=== PATIENT | female | born 1975 | race Caucasian/White ===

== ENCOUNTER 2018-09-04 13:46 | Emergency (ER) | payer OTHER ==
[2018-09-04 13:57] VITALS: BP 123/81; PULSE 88; TEMP 98; BMI 37.8
[2018-09-04 14:23] LABS: BASO % 0.5 % (0-2.0); EOS % 1.3 % (0-4.5); HEMATOCRIT 41.9 % (35.4-49); HEMOGLOBIN 13.4 GM/dL (11.7-16.9); LYMPH % 30.8 % (8-40); MEAN PLT VOLUME 8.8 fl (7.5-11.1); NEUT % 61.4 % (42.8-82.8); PLATELET COUNT 243 K/MM3 (134-434); RBC 5.37 M/mm3 (4.00-5.60); RDW 13.1 % (11.9-15.9); WHITE BLOOD COUNT 7.6 K/mm3 (4.0-10.0)
--- NOTE | 2018-09-04 14:23 | PDOC ---
History of Present Illness - General Chief Complaint: Blood/Body Fluid Exposure SJR Stated Complaint: EVALUATION Time Seen by Provider: 09/04/18 13:57 History Source: Patient Exam Limitations: No Limitations - History of Present Illness Initial Comments: 09/04/18 14:17 43-year-old female presents to ED status post puncture to the upper left arm by a scalpel which was used on a patient previous to the incident. 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 Patient states tetanus is up-to-date and has no history of diabetes or immunosuppressive disorders. Timing/Duration: 1 hour Severity: mild Associated Symptoms: reports: denies symptoms Past History - Travel Traveled outside of the country in the last 30 days: No - Past Medical History Allergies/Adverse Reactions: Allergies Allergy/AdvReac Type Severity Reaction Status Date / Time Penicillins Allergy Severe Swelling Verified 09/04/18 13:57 Sulfa (Sulfonamide AdvReac Severe Rash Verified 09/04/18 13:57 Antibiotics) Home Medications: Ambulatory Orders Clindamycin [Cleocin -] 300 mg PO TID #21 capsule 09/04/18 - Suicide/Smoking/Psychosocial Hx Smoking History: Never smoked Patient Lives Alone: No Lives with/in: spouse/SO Review of Systems - Review of Systems Able to Perform ROS?: Yes Constitutional: No: Symptoms Reported Musculoskeletal: No: Symptoms Reported Integumentary: Yes: See HPI Hematologic/Lymphatic: No: Symptoms Reported *Physical Exam - Vital Signs Last Vital Signs Temp Pulse Resp BP Pulse Ox 98.0 F 88 20 123/81 97 09/04/18 13:53 09/04/18 13:53 09/04/18 13:53 09/04/18 13:53 09/04/18 13:53 - Physical Exam General Appearance: Yes: Nourished, Appropriately Dressed. No: Apparent Distress Extremity: positive: Normal Inspection, Normal Range of Motion. negative: Tender Integumentary: positive: Other (noted 0.25 superficial puncture to the distal aspect of left tricep. Surrounding skin intact) Neurologic: positive: Normal Mood/Affect, Motor Strength 5/5 (ambulatory) ED Treatment Course - LABORATORY CBC & Chemistry Diagram: 09/04/18 13:58 09/04/18 13:58 Medical Decision Making - Medical Decision Making 09/04/18 14:24 Chief complaint: Left arm injury secondary to scalpel which was used for an incision and drainage of a Bartholin's cyst Exam: Area cleansed with soap and water. Small superficial puncture karis noted to left upper posterior arm. Plan: Postexposure order set, will prescribe clindamycin for cellulitis prophylactically. labs pending from patient exposed to J #[id number] 09/04/18 16:09 Laboratory Tests 09/04/18 09/04/18 09/04/18 13:58 13:58 13:58 WBC 7.6 Hgb 13.4 Hct 41.9 MCV 78.0 L MCH 25.0 L Sodium 137 Potassium 4.1 Chloride 107 Carbon Dioxide 26 Anion Gap 5 L BUN 15 Creatinine 0.7 Random Glucose 92 Uric Acid 3.3 Calcium 8.5 Phosphorus 2.8 Total Bilirubin 0.7 GGT 23 AST 11 L ALT 20 Alkaline Phosphatase 65 LD Total 175 Total Protein 7.1 Albumin 3.8 Triglycerides 77 Cholesterol 217 H HIV 1&2 Antibody Screen Negative HIV P24 Antigen Negative Hepatitis panel is a send out. Patient made aware. Prescription for clindamycin sent. 09/04/18 16:11 Was told by resident taking care of the patient HIV results pending. *DC/Admit/Observation/Transfer Diagnosis at time of Disposition: Employee exposure to blood - Discharge Dispostion Disposition: HOME Condition at time of disposition: Good - Prescriptions Prescriptions: Clindamycin [Cleocin -] 300 mg PO TID #21 capsule - Referrals - Patient Instructions Printed Discharge Instructions: How to Handle Body Fluid Exposure -- Healthcare Worker Additional Instructions: Please start clindamycin as recommended. Please observe for infection around the site. Also consider repeating labs within 6 months with your primary care physician . - Post Discharge Activity Forms/Work/School Notes: Back to Work
[2018-09-04 14:48] LABS: ALBUMIN 3.8 g/dl (3.4-5.0); ALK PHOS 65 U/L (45-117); ANION GAP 5 MMOL/L (8-16); BILIRUBIN,TOTAL 0.7 mg/dL (0.2-1); BLOOD UREA NITROGEN 15 mg/dL (7-18); CALCIUM 8.5 mg/dL (8.5-10.1); CHLORIDE 107 mmol/L (98-107); CHOLESTEROL 217 mg/dL (50-200); CO2 26 mmol/L (21-32); CREATININE 0.7 mg/dL (0.55-1.3); GAMMA GLUTAMYL TRANSPEPTIDASE 23 U/L (5-85); GLUCOSE,RANDOM 92 mg/dL (74-106); LDH 175 U/L (87-246); PHOSPHOROUS 2.8 mg/dL (2.5-4.9); POTASSIUM 4.1 mmol/L (3.5-5.1); SGOT/AST 11 U/L (15-37); SGPT/ALT 20 U/L (13-61); SODIUM 137 mmol/L (136-145); TOT PROT 7.1 g/dl (6.4-8.2); TRIGLYCERIDES 77 mg/dL (0-150); URIC ACID 3.3 mg/dL (2.6-7.2)
[2018-09-05 08:10] LABS: HBsAG SCREEN Negative (Negative)
== END 2018-09-04 16:15 | disposition home or self-care (01) ==
LOC: JER 13:46 → EDSEX 13:46 → JER 16:15
DX: Z77.21 Contact with and (suspected) exposure to potentially hazardous body fluids (principal); L76.11 Accidental puncture and laceration of skin and subcutaneous tissue during a dermatologic procedure; S41.132A Puncture wound without foreign body of left upper arm, initial encounter; Y93.F9 Activity, other caregiving; Y92.238 Other place in hospital as the place of occurrence of the external cause; Y99.0 Civilian activity done for income or pay; Z88.0 Allergy status to penicillin; Z88.2 Allergy status to sulfonamides
CPT/HCPCS: 36415; 80053; 82465; 82977; 83615; 84100; 84478; 84550; 85025; 86317; 86706; 86803; 87340; 87389; 99282-25

== ENCOUNTER 2022-06-06 17:12 | Emergency (ER) | payer OTHER, BC ==
[2022-06-06 17:23] VITALS: BP 120/66; PULSE 70; RESP 18; TEMP 97.8; BMI 34.3
== END 2022-06-06 18:57 | disposition home or self-care (01) ==
LOC: JER 17:12 → JERFT 17:12
DX: R09.81 Nasal congestion (principal)
CPT/HCPCS: 0241U-QW; 99283-25